=== PATIENT | female | born 1990 | race Caucasian/White ===

== ENCOUNTER → 2017-03-09 | Outpatient (CLI) | payer SELFPAY ==
--- NOTE | 2017-03-11 22:01 | CT ---
Procedure: CT HEAD WITHOUT IV CONTRAST Exam date: 03/09/2017 12:00 AM CDT Ordering Provider: JEFF Rojas Clinical Indication: HEADACHE Comparison: None Technique: Using a helical scanner, sequential axial imaging of the brain was obtained without the administration of intravenous contrast. The exam was obtained from the skull base to vertex. This exam was performed according to our departmental dose optimization program which includes use of automated exposure control, adjustment of the mA and/or kV according to patient size and/or use of iterative reconstruction technique. Findings: Ventricular size and configuration are normal. There is no midline shift or hydrocephalus. There is no acute intracranial hemorrhage or mass effect. There is no CT evidence for acute cortical infarct. Normal-appearing gutierrez and white matter with appropriate sulcation and normal parenchymal volume. The calvarium is intact. There is no fracture. There is no lytic or sclerotic lesion. The visualized paranasal sinuses and mastoid air cells are clear. IMPRESSION: 1. Negative CT scan of the brain without intravenous contrast administration. Electronically signed by: Pablo Bedolla MD 03/11/2017 10:00 PM CDT
== END | disposition home or self-care (01) ==
LOC: LAB.O 10:51
PROVIDERS: ATTEND Nurse Practitioner Family
DX: R51 Headache (principal); Z68.38 Body mass index [BMI] 38.0-38.9, adult

== ENCOUNTER → 2019-12-22 | Outpatient (CLI) | payer BC | LOC: LAB.O 11:19 | PROVIDERS: ATTEND Registered Nurse General Practice | DX: R19.7 Diarrhea, unspecified (principal) ==

== ENCOUNTER → 2020-01-02 | Outpatient (CLI) | payer BC ==
--- NOTE | 2020-01-05 08:19 | CT ---
EXAM DESCRIPTION: Abdomen w/o Contrast: Computed Tomography. CLINICAL HISTORY: EPIGASTRIC PAIN COMPARISON: Ultrasound abdomen March 2012. TECHNIQUE: Spiral-axial scans at 5 mm intervals through the abdomen. Coronal and sagittal 2.0 mm reconstructions. No IV or oral contrast. Total DLP: 985 mGy - m2. This exam was performed according to our departmental dose-optimization program which includes automated exposure control, adjustment of the mA and/or kV according to patient size and/or use of iterative reconstruction technique; to reduce radiation dose to as low as reasonably achievable (ALARA). FINDINGS: Lung bases and pleura: Negative. Upper Abdominal organs: Long axis right lobe liver 19 cm. Minimally decreased echogenicity but no focal abnormalities. Limited due to lack of IV contrast. Calcification in the spleen. Pancreas/Gallbladder/Ducts: Possible fatty stranding abutting the junction of the distal body and tail of the pancreas. No focal cysts or masses or calcifications. Stomach and adrenal glands are negative. Surgical clips gallbladder fossa. Minimally distended duct but physiologic postcholecystectomy. Kidneys: Multiple radiodense stones in the right kidney with the largest in the lower collecting system measuring 3.7 mm. Smaller stones in the lower collecting system upper collecting system and mid kidney. No hydronephrosis or perirenal fluid. No radiodense stones or other abnormalities in the left kidney. Bilateral ureters that are included on the study are negative. Mesentery: No free air or free fluid. Abnormalities around the pancreas as previously described. Aorta: Normal outer caliber with no large calcifications. Small Bowel: Included segments are not distended. Terminal Ileum/Cecum: Terminal ileum visualized but cecum not completely included on the study. Appendix not seen. Small lymph nodes abutting the TFCC and distal ileum but no fatty stranding or fluid. Colon: Minimal fecal matter throughout the included: But no distention. Distal colon not included. Spine: Minimal spondylosis of the lower thoracic spine. Trace thoracolumbar dextroscoliosis. Abdominal Wall/Back Soft Tissues: Umbilical hernia with the hernia neck measuring 1.3 x 1.4 cm. The hernia sac contains only fat measures 1.5 x 4 cm. No fluid or enhancement in the sac. Otherwise negative.. IMPRESSION: 1. Pancreas slightly enlarged in the body and echogenicity junction with the tail with adjacent fatty stranding which could indicate early pancreatitis. No mass or cyst formation but limited due to lack of IV contrast. Correlate with clinical and laboratory findings. 2. Hernia involving the umbilicus but no complications and no incarcerated bowel. 3. Multiple right kidney stones without obstruction. Left kidney and included ureters are unremarkable. 4. Fatty liver with mild to moderate enlargement. No free fluid. Electronically signed by: Oswald Bledsoe MD 01/05/2020 8:17 AM CDT
== END ==
LOC: LAB.O 11:32
PROVIDERS: ATTEND Registered Nurse General Practice
DX: K44.9 Diaphragmatic hernia without obstruction or gangrene (principal); N20.0 Calculus of kidney; K76.0 Fatty (change of) liver, not elsewhere classified; K86.9 Disease of pancreas, unspecified

== ENCOUNTER → 2020-01-05 | Outpatient (CLI) | payer BC | LOC: LAB.O 11:28 | PROVIDERS: ATTEND Registered Nurse General Practice | DX: R10.13 Epigastric pain (principal) ==

== ENCOUNTER → 2020-02-02 | Outpatient (CLI) | payer BC | LOC: LAB.O 13:58 | DX: R79.9 Abnormal finding of blood chemistry, unspecified (principal); R93.2 Abnormal findings on diagnostic imaging of liver and biliary tract ==